=== PATIENT | male | born 2000 | race Caucasian/White ===

== ENCOUNTER 2022-04-23 01:58 | Emergency (ER) | payer OTHER ==
[~2022-04-23] VITALS: Ht 182.9 cm; Wt 68.5 kg
[2022-04-23] MEDS ORDERED: BACITRACIN ZINC OINT UDPKT TOP ONE (03:30)
[2022-04-23] MEDS ORDERED: TETANUS, DIPHTHERIA, PERTUSSIS VAC/PF 0.5ML (>10YR OLD) IM ONE (03:30)
[2022-04-23] MEDS ORDERED: IBUPROFEN 600MG TABLET PO ONE (03:30)
[2022-04-23] MEDS ORDERED: BO1 TP (03:36)
[2022-04-23] MEDS ORDERED: IBUP-2029 MT (03:36)
[2022-04-23] MEDS ORDERED: DOXY-326 MT (03:36)
[2022-04-23] MEDS ORDERED: DOXYCYCLINE HYCLATE 100MG CAPSULE PO ONE (03:45)
[2022-04-23 04:20] VITALS: BP 108/64
== END 2022-04-23 04:20 | disposition home or self-care (01) ==
LOC: ER 01:58
DX: S01.511A Laceration without foreign body of lip, initial encounter (principal); X58.XXXA Exposure to other specified factors, initial encounter; Y93.89 Activity, other specified; Y92.9 Unspecified place or not applicable; Z88.0 Allergy status to penicillin; Z98.890 Other specified postprocedural states
CPT/HCPCS: 12001; 90471; 90715; 99284; Z7610